=== PATIENT | male | born 1995 | race Two or more races ===

== ENCOUNTER 2020-04-24 10:39 | Emergency (ER) | payer OTHER ==
[~2020-04-24] VITALS: Ht 167.6 cm; Wt 54.4 kg
[2020-04-24 10:56] VITALS: BP 117/72
[2020-04-24] MEDS ORDERED: HYDROcodone-ACET 5/325MG TAB PO ONE (11:30)
== END 2020-04-24 11:40 | disposition home or self-care (01) ==
LOC: ER 10:39
DX: K08.89 Other specified disorders of teeth and supporting structures (principal); Z88.0 Allergy status to penicillin; Z88.1 Allergy status to other antibiotic agents